=== PATIENT | male | born 1990 | race African-American/Black ===

== ENCOUNTER 2021-08-13 15:33 | Emergency (ER) | payer OTHER, BC, SELFPAY ==
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
[2021-08-13 15:50] VITALS: BP 142/84; PULSE 96; O2SAT 98
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
[2021-08-13 16:18] VITALS: BP 140/104; PULSE 106; RESP 18; TEMP 36.3; O2SAT 100; BMI 19.1
== END 2021-08-13 17:23 | disposition home or self-care (01) ==
PROVIDERS: Emergency Provider Internal Medicine; PCP Internal Medicine
DX: S39.012A Strain of muscle, fascia and tendon of lower back, initial encounter (principal); S16.1XXA Strain of muscle, fascia and tendon at neck level, initial encounter; S00.81XA Abrasion of other part of head, initial encounter; R51.9 Headache, unspecified; V43.52XA Car driver injured in collision with other type car in traffic accident, initial encounter; Y93.89 Activity, other specified; Y92.414 Local residential or business street as the place of occurrence of the external cause; Y99.9 Unspecified external cause status
CPT/HCPCS: 70450; 72125; 99283; 99284